=== PATIENT | male | born 1940 | race Two or more races ===

== ENCOUNTER 2018-11-14 10:45 | Outpatient (CLI) | payer OTHER | END 2018-11-14 10:50 | disposition home or self-care (01) | LOC: SONOGRAMA 10:45 | DX: E04.2 Nontoxic multinodular goiter (principal) ==

== ENCOUNTER 2020-09-06 10:26 | Outpatient (CLI) | payer OTHER | END 2020-09-06 15:04 | disposition home or self-care (01) | LOC: RX STUDY 10:26 | PROVIDERS: ATTEND Internal Medicine Gastroenterology | DX: R10.13 Epigastric pain (principal); R13.19 Other dysphagia ==